=== PATIENT | female | born 1950 | race Caucasian/White ===

== ENCOUNTER 2024-09-29 12:13 | Emergency (ER) | payer MEDICARE, OTHER ==
[~2024-09-29] VITALS: Ht 165.1 cm; Wt 59.4 kg
[2024-09-29] MEDS ORDERED: FOLI1TAB27 PO (12:36)
[2024-09-29] MEDS ORDERED: METH2.5T PO (12:36)
[2024-09-29] MEDS ORDERED: LISI-782 PO (12:36)
[2024-09-29 12:45] LABS: BASOPHILS # (AUTO) 0.1 K/UL (0.0-0.2); BASOPHILS % (AUTO) 1.3 % (0.0-2.0); EOSINOPHILS % (AUTO) 14.2 % (0.0-7.0); HEMATOCRIT 47.8 % (31.2-41.9); HEMOGLOBIN 15.4 g/dL (10.9-14.3); LYMPHOCYTES # (AUTO) 2.6 K/uL (0.8-4.8); LYMPHOCYTES % (AUTO) 35.2 % (20.5-51.5); MEAN CORPUSCULAR HEMOGLOBIN 28.2 uug (24.7-32.8); MEAN CORPUSCULAR HGB CONC 32 g/dL (32.3-35.6); MEAN CORPUSCULAR VOLUME 87.4 fL (75.5-95.3); MONOCYTES # (AUTO) 0.5 K/uL (0.1-1.30); MONOCYTES % (AUTO) 7.2 % (0.0-11.0); NEUTROPHILS # (AUTO) 3.1 K/uL (1.8-8.9); NEUTROPHILS % (AUTO) 42.1 % (38.5-71.5); PLATELET COUNT (AUTO) 241 K/uL (179-408); RED BLOOD CELL COUNT(AUTO) 5.46 MIL/uL (3.63-4.92); WHITE BLOOD COUNT (AUTO) 7.3 K/uL (3.8-11.8)
[2024-09-29 12:50] VITALS: O2SAT 92
[2024-09-29] MEDS: ALBUTEROL SULFATE 2.5 MG/3 ML NEBU NEB ONE (12:51)
[2024-09-29] MEDS: IPRATROPIUM BROMIDE 0.5 MG/2.5 ML NEBU NEB ONE (12:51)
[2024-09-29] MEDS ORDERED: ALBUTEROL SULFATE 2.5 MG/3 ML NEBU ONE (12:55)
[2024-09-29] MEDS ORDERED: IPRATROPIUM BROMIDE 0.5 MG/2.5 ML NEBU ONE (12:55)
[2024-09-29 13:00] VITALS: O2SAT 92; O2SAT 98
[2024-09-29 13:03] LABS: CALCIUM 8.9 mg/dL (8.5-10.1); CARBON DIOXIDE 28 mmol/L (21-32); CHLORIDE 107 mmol/L (98-107); GLUCOSE 161 mg/dL (74-106); POTASSIUM 3.6 mmol/L (3.5-5.1); SODIUM SERUM 143 mmol/L (136-145); UREA NITROGEN, BLOOD 14 mg/dL (7-18)
[2024-09-29 13:10] LABS: DIFFERENTIAL COMMENT 1
[2024-09-29] MEDS ORDERED: levoFLOXacin 750 MG TABLET ONE (13:10)
[2024-09-29] MEDS ORDERED: predniSONE 10 MG TABLET ONE (13:11)
[2024-09-29 13:12] LABS: ALANINE AMINOTRANSFERASE 18 U/L (14-59); ALBUMIN 3.1 g/dL (3.4-5.0); ALKALINE PHOSPHATASE 209 U/L (50-136); ASPARTATE AMINOTRANSFERASE 24 U/L (15-37); BILIRUBIN,DIRECT 0.2 mg/dL (0.0-0.2); BILIRUBIN,TOTAL 0.9 mg/dL (0.2-1.0); NT-PRO BNP 611 pg/mL (0-125); TOTAL PROTEIN, SERUM 7.2 g/dL (6.4-8.2)
[2024-09-29] MEDS: predniSONE 10 MG TABLET PO ONE (13:34)
[2024-09-29] MEDS: IV NORMAL SALINE 500 ML BAG IV ONE (13:34)
[2024-09-29] MEDS: levoFLOXacin 750 MG TABLET PO ONE (13:34)
[2024-09-29] MEDS ORDERED: ALBU6.7H9 INH (14:56)
[2024-09-29] MEDS ORDERED: LEVO500T90 PO (14:56)
[2024-09-29] MEDS ORDERED: BUDE10.2 INH (14:56)
[2024-09-29] MEDS ORDERED: PRED20TA PO (14:56)
[2024-09-29 15:47] VITALS: BP 146/87; O2SAT 99
== END 2024-09-29 15:48 | disposition home or self-care (01) ==
LOC: ER 12:13
DX: J20.9 Acute bronchitis, unspecified (principal); I10 Essential (primary) hypertension; Z79.899 Other long term (current) drug therapy; Z79.631 Long term (current) use of antimetabolite agent; Z79.52 Long term (current) use of systemic steroids; Z79.51 Long term (current) use of inhaled steroids; Z20.822 Contact with and (suspected) exposure to COVID-19; Z86.73 Personal history of transient ischemic attack (TIA), and cerebral infarction without residual deficits; Z88.2 Allergy status to sulfonamides; Z88.0 Allergy status to penicillin
CPT/HCPCS: 99285; 96360; 71045; 96361; 87426; 80076; 80048; 83880; 85025; 85379; 84484; 89055; 36415; 94640; 93005; J7512; J7040; A4606; A4663; J3590

== ENCOUNTER 2024-12-08 16:05 | Inpatient (IN) | payer MEDICARE, OTHER ==
[~2024-12-08] VITALS: Ht 195.6 cm; Wt 61.2 kg
[~2024-12-08 16:05] MED LIST: ALBU6.7H9 INH; BUDE10.2 INH; FOLI1TAB27 PO; LEVO500T90 PO; LISI-782 PO; METH2.5T PO; PRED20TA PO
[2024-12-08 19:08] LABS: BASOPHILS # (AUTO) 0.1 K/UL (0.0-0.2); BASOPHILS % (AUTO) 0.4 % (0.0-2.0); EOSINOPHILS # (AUTO) 0.2 K/uL (0.0-0.7); EOSINOPHILS % (AUTO) 1.8 % (0.0-7.0); LYMPHOCYTES # (AUTO) 1.9 K/uL (0.8-4.8); LYMPHOCYTES % (AUTO) 15.8 % (20.5-51.5); MEAN CORPUSCULAR HEMOGLOBIN 28.9 uug (24.7-32.8); MEAN CORPUSCULAR HGB CONC 33 g/dL (32.3-35.6); MEAN CORPUSCULAR VOLUME 88.7 fL (75.5-95.3); MONOCYTES # (AUTO) 0.7 K/uL (0.1-1.30); MONOCYTES % (AUTO) 5.9 % (0.0-11.0); NEUTROPHILS # (AUTO) 9.1 K/uL (1.8-8.9); NEUTROPHILS % (AUTO) 76.1 % (38.5-71.5); PLATELET COUNT (AUTO) 249 K/uL (179-408); RED BLOOD CELL COUNT(AUTO) 5.19 MIL/uL (3.63-4.92); RED CELL DISTRIBUTION WIDTH 15.3 % (12.3-17.7)
[2024-12-08 19:11] LABS: DIFFERENTIAL COMMENT 1
[2024-12-08] MEDS ORDERED: MORPHINE SULFATE 2 MG/1 ML DISP.SYRIN ONE (19:16)
[2024-12-08 19:18] LABS: CALCIUM 8.5 mg/dL (8.5-10.1); CARBON DIOXIDE 25 mmol/L (21-32); CHLORIDE 107 mmol/L (98-107); CREATININE 0.9 mg/dL (0.6-1.3); GLUCOSE 129 mg/dL (74-106); SODIUM SERUM 142 mmol/L (136-145); UREA NITROGEN, BLOOD 14 mg/dL (7-18)
[2024-12-08] MEDS: MORPHINE SULFATE 2 MG/1 ML DISP.SYRIN IV ONE (19:23)
[2024-12-08 19:24] LABS: ALANINE AMINOTRANSFERASE 26 U/L (14-59); ALBUMIN 3.1 g/dL (3.4-5.0); ALKALINE PHOSPHATASE 133 U/L (50-136); ASPARTATE AMINOTRANSFERASE 28 U/L (15-37); BILIRUBIN,DIRECT 0.1 mg/dL (0.0-0.2); BILIRUBIN,TOTAL 0.6 mg/dL (0.2-1.0); TOTAL PROTEIN, SERUM 6.8 g/dL (6.4-8.2)
[2024-12-08] MEDS ORDERED: ONDANSETRON 4 MG/2 ML VIAL ONE (21:05)
[2024-12-08] MEDS: ONDANSETRON 4 MG/2 ML VIAL IV ONE (21:07)
[2024-12-08] MEDS: IV NORMAL SALINE 1000 ML BAG IV ONE (21:14)
[2024-12-08] MEDS ORDERED: HYDROCODONE/APAP 5-325MG TABLET ONE (23:05)
[2024-12-08] MEDS: HYDROCODONE/APAP 5-325MG TABLET PO ONE (23:08)
[2024-12-08] MEDS ORDERED: ONDANSETRON 4 MG/2 ML VIAL IV PRN (23:30)
[2024-12-08] MEDS ORDERED: MAGNESIUM HYDROXIDE 30 ML LIQUID UDC PO PRN (23:30)
[2024-12-09] VITALS (7 sets, daily range): BP systolic 143–180; BP diastolic 52–84; TEMP 97.3–98.1; O2SAT 96–98
[2024-12-09] MEDS ORDERED: ALBUTEROL SULFATE 8 GM HFA.AER.AD INH SCH ×2 (01:00)
[2024-12-09] MEDS ORDERED: ALBUTEROL SULFATE 2.5 MG/3 ML NEBU NEB PRN (05:00)
[2024-12-09] MEDS: PANTOPRAZOLE SODIUM 40 MG TABLET.DR PO SCH (06:41)
[2024-12-09] MEDS: LISINOPRIL 5 MG TABLET PO SCH (08:15)
[2024-12-09] MEDS: ENOXAPARIN SODIUM 40 MG/0.4 ML DISP.SYRIN SQ SCH (08:16)
[2024-12-09] MEDS: HYDROCODONE/APAP 5-325MG TABLET PO PRN (08:18)
[2024-12-09] MEDS ORDERED: predniSONE 20 MG TABLET PO SCH ×2 (09:00)
[2024-12-09] MEDS ORDERED: FOLIC ACID 1 MG TABLET PO SCH ×2 (09:00)
[2024-12-09] MEDS ORDERED: hydrALAZINE HCL 25 MG TABLET PO PRN (12:00)
[2024-12-09 14:10] LABS: BASOPHILS % (AUTO) 0.4 % (0.0-2.0); EOSINOPHILS # (AUTO) 0.2 K/uL (0.0-0.7); EOSINOPHILS % (AUTO) 2.1 % (0.0-7.0); HEMATOCRIT 40.3 % (31.2-41.9); HEMOGLOBIN 13.3 g/dL (10.9-14.3); LYMPHOCYTES # (AUTO) 1.8 K/uL (0.8-4.8); MEAN CORPUSCULAR HGB CONC 33 g/dL (32.3-35.6); MEAN CORPUSCULAR VOLUME 87.8 fL (75.5-95.3); MONOCYTES % (AUTO) 10.8 % (0.0-11.0); NEUTROPHILS # (AUTO) 6.1 K/uL (1.8-8.9); NEUTROPHILS % (AUTO) 66.7 % (38.5-71.5); PLATELET COUNT (AUTO) 215 K/uL (179-408); RED BLOOD CELL COUNT(AUTO) 4.59 MIL/uL (3.63-4.92); RED CELL DISTRIBUTION WIDTH 15.1 % (12.3-17.7); WHITE BLOOD COUNT (AUTO) 9.2 K/uL (3.8-11.8)
[2024-12-09 14:13] LABS: DIFFERENTIAL COMMENT 1
[2024-12-09 14:21] LABS: CALCIUM 8.1 mg/dL (8.5-10.1); CARBON DIOXIDE 28 mmol/L (21-32); CHLORIDE 108 mmol/L (98-107); CREATININE 0.8 mg/dL (0.6-1.3); GLUCOSE 122 mg/dL (74-106); POTASSIUM 3.9 mmol/L (3.5-5.1); SODIUM SERUM 144 mmol/L (136-145); UREA NITROGEN, BLOOD 15 mg/dL (7-18)
[2024-12-09] MEDS: DOCUSATE SODIUM 100 MG CAPSULE PO SCH (20:18)
[2024-12-09] MEDS: ACETAMINOPHEN 325 MG TABLET PO PRN (20:19)
[2024-12-10] VITALS: BP 154/58; TEMP 97.6; O2SAT 96
[2024-12-10 04:00] VITALS: BP 138/81; TEMP 98.2; O2SAT 100
[2024-12-10 06:52] LABS: BASOPHILS % (AUTO) 0.7 % (0.0-2.0); EOSINOPHILS # (AUTO) 0.5 K/uL (0.0-0.7); EOSINOPHILS % (AUTO) 7.1 % (0.0-7.0); HEMOGLOBIN 12.5 g/dL (10.9-14.3); LYMPHOCYTES # (AUTO) 2.3 K/uL (0.8-4.8); LYMPHOCYTES % (AUTO) 31.8 % (20.5-51.5); MEAN CORPUSCULAR HEMOGLOBIN 30.6 uug (24.7-32.8); MEAN CORPUSCULAR HGB CONC 35 g/dL (32.3-35.6); MEAN CORPUSCULAR VOLUME 88.2 fL (75.5-95.3); MONOCYTES # (AUTO) 0.8 K/uL (0.1-1.30); MONOCYTES % (AUTO) 10.7 % (0.0-11.0); NEUTROPHILS # (AUTO) 3.6 K/uL (1.8-8.9); NEUTROPHILS % (AUTO) 49.7 % (38.5-71.5); PLATELET COUNT (AUTO) 203 K/uL (179-408); RED BLOOD CELL COUNT(AUTO) 4.08 MIL/uL (3.63-4.92); RED CELL DISTRIBUTION WIDTH 14.9 % (12.3-17.7); WHITE BLOOD COUNT (AUTO) 7.3 K/uL (3.8-11.8)
[2024-12-10 07:10] LABS: DIFFERENTIAL COMMENT 1
[2024-12-10 07:11] LABS: CARBON DIOXIDE 27 mmol/L (21-32); CHLORIDE 110 mmol/L (98-107); CREATININE 0.7 mg/dL (0.6-1.3); GLUCOSE 92 mg/dL (74-106); MAGNESIUM 1.9 mg/dL (1.8-2.4); POTASSIUM 3.9 mmol/L (3.5-5.1); SODIUM SERUM 143 mmol/L (136-145); UREA NITROGEN, BLOOD 14 mg/dL (7-18)
[2024-12-10 09:09] VITALS: BP 129/69; TEMP 97.7; O2SAT 95
[2024-12-10] MEDS ORDERED: HYDR-3980 PO (11:47)
[2024-12-10 11:59] VITALS: BP 151/66; TEMP 97.8; O2SAT 96
== END 2024-12-10 14:30 | disposition home or self-care (01) | DRG 554 ==
LOC: ER 16:53 → TELE3 23:20 → ER 12-09 00:47
PROVIDERS: ADMIT Internal Medicine; ATTEND Nurse Practitioner Acute Care
DX: M19.012 Primary osteoarthritis, left shoulder (principal); E44.1 Mild protein-calorie malnutrition; D72.829 Elevated white blood cell count, unspecified; Z71.1 Person with feared health complaint in whom no diagnosis is made; R07.9 Chest pain, unspecified; Z98.84 Bariatric surgery status; E88.09 Other disorders of plasma-protein metabolism, not elsewhere classified; I10 Essential (primary) hypertension; Z91.81 History of falling; Z86.73 Personal history of transient ischemic attack (TIA), and cerebral infarction without residual deficits; Z88.2 Allergy status to sulfonamides; Z88.0 Allergy status to penicillin; Z79.899 Other long term (current) drug therapy; Z79.51 Long term (current) use of inhaled steroids
CPT/HCPCS: 36415; 70450; 71045; 73030; 73060; 83735; 84100; 84484; 85025; G0378; J1650; J2270; J2405; J7040